=== PATIENT | female | born 1960 | race Caucasian/White ===

== ENCOUNTER 2021-03-20 09:17 | Emergency (ER) | payer OTHER ==
[~2021-03-20] VITALS: Ht 167.6 cm; Wt 85.0 kg
--- NOTE | 2021-03-20 09:30 | NUR ---
assurance auditor completed.
--- NOTE | 2021-03-20 09:34 | NUR ---
PA at bedside for exam.
[2021-03-20] MEDS ORDERED: OXYcodone/APAP 5/325MG TABLET ONE (09:40)
--- NOTE | 2021-03-20 09:45 | NUR ---
Pt medicated for pain and trade sales assistant at bedside to take pt to xray.
--- NOTE | 2021-03-20 09:59 | NUR ---
Pt arrived back to room from xray. Placed ice with washcloth between skin and bag to L wrist with pillow for elevation.
[2021-03-20] MEDS ORDERED: OXYcodone/APAP 5/325MG TABLET PO ONE (10:00)
--- NOTE | 2021-03-20 10:26 | NUR ---
ED techs to bedside for splint application.
--- NOTE | 2021-03-20 10:54 | NUR ---
PA notified that pt registration completed for finalization of d/c. Pt assessed with new splint in place and good distal CMS present. Pt able to return verbalize splint care and problems to be aware of as well as when to return to ED if needed. Awaiting D/C paperwork.
[2021-03-20 11:03] VITALS: BP 126/72
== END 2021-03-20 11:05 | disposition home or self-care (01) ==
LOC: ED 10:42
DX: S52.572A Other intraarticular fracture of lower end of left radius, initial encounter for closed fracture (principal); W01.0XXA Fall on same level from slipping, tripping and stumbling without subsequent striking against object, initial encounter; Y93.89 Activity, other specified; Y92.89 Other specified places as the place of occurrence of the external cause; Y99.8 Other external cause status
CPT/HCPCS: 29125; 99283